=== PATIENT | female | born 1995 | race Caucasian/White ===

== ENCOUNTER 2021-04-05 20:52 | Emergency (ER) | payer OTHER ==
[~2021-04-05 20:52] MED LIST: COLACE 100MG C100 MG PO; PRENATAL TABLE1 EAC1 PO; VISTARIL 25 MG25 MG PO
== END 2021-04-06 00:40 | disposition home or self-care (01) ==
LOC: ER1 20:52
DX: I10 Essential (primary) hypertension (principal); F41.9 Anxiety disorder, unspecified; Z79.899 Other long term (current) drug therapy
CPT/HCPCS: 71045; 93005; 99283